=== PATIENT | male | born 1995 | race Caucasian/White ===

== ENCOUNTER 2016-10-26 09:41 | Emergency (ER) | payer OTHER ==
[2016-10-26 09:45] VITALS: BP 141/80; PULSE 60; TEMP 97.7; BMI 26.1
--- NOTE | 2016-10-26 10:18 | PDOC ---
History of Present Illness - General Chief Complaint: Injury Stated Complaint: LT WRIST PAIN Time Seen by Provider: 10/26/16 10:10 History Source: Patient Exam Limitations: No Limitations - History of Present Illness Initial Comments: 10/26/16 10:15 While playing basketball last night, fell onto outstretched left hand and buttock. Patient complaints of pain and immobility to left lateral hand, and reproduce pain to coccyx. States has had a coccyx fracture in the past and feels may every exacerbated that injury. Denies any problems with bowel or bladder and no distal extremity problem Occurred: reports: yesterday Severity: reports: mild, moderate Pain Location: reports: upper extremity Method of Injury: Yes: fall Modifying Factors: improves with: cold therapy (left hand) Loss of Consciousness: no loss of consciousness Past History - Travel Traveled outside of the country in the last 30 days: No Close contact w/someone who was outside of country & ill: No - Past Medical History Allergies/Adverse Reactions: Allergies Allergy/AdvReac Type Severity Reaction Status Date / Time No Known Allergies Allergy Verified 10/26/16 09:45 Home Medications: Ambulatory Orders Naproxen [Naprosyn -] 500 mg PO BID #20 tablet 10/26/16 Other medical history: NONE - Psycho/Social/Smoking Cessation Hx Suicidal Ideation: No Smoking History: Never smoked Hx Alcohol Use: No Drug/Substance Use Hx: No Substance Use Type: Marijuana Review of Systems - Review of Systems Able to Perform ROS?: Yes Is the patient limited Mohawk proficient: Yes Constitutional: Yes: Symptoms Reported, See HPI. No: Malaise HEENTM: No: Symptoms Reported Respiratory: No: Symptoms reported ABD/GI: No: Symptoms Reported : No: Symptoms Reported Musculoskeletal: Yes: Symptoms Reported, See HPI, Joint Pain, Joint Swelling ( left hand ,4,5th metacarpals), Other Integumentary: Yes: Symptoms Reported, See HPI, Bruising All Other Systems: Reviewed and Negative *Physical Exam - Vital Signs Last Vital Signs Temp Pulse Resp BP Pulse Ox 97.7 F 60 18 141/80 100 10/26/16 09:42 10/26/16 09:42 10/26/16 09:42 10/26/16 09:42 10/26/16 09:42 - Physical Exam General Appearance: Yes: Appropriately Dressed, Apparent Distress HEENT: positive: [place], Normal ENT Inspection, Normal Voice, Symmetrical, TMs Normal, Pharynx Normal Musculoskeletal: positive: Decreased Range of Motion, Other (tenderness to midline Sacrum/ upper coccyx. No bruisiing or swelling ). negative: Normal Inspection Extremity: positive: Tender (tenderness and deformity noted to the lateral aspect of left hand along the fifth and fourth metacarpals. Unable to make fist and painful flexion and extension to left fifth and fourth digits. Neurovascular intact to fingertips), Swelling. negative: Normal Inspection, Normal Range of Motion Integumentary: positive: Ecchymosis, Bruising (left palm) Neurologic: positive: leaf blender II-XII NML intact, Fully Oriented, Alert, Normal Mood/ Affect, Normal Response, Motor Strength 5/5 *DC/Admit/Observation/Transfer Diagnosis at time of Disposition: Pain, coccyx Sprain of hand, left Qualifiers: Encounter type: initial encounter Qualified Code(s): S63.92XA - Sprain of unspecified part of left wrist and hand, initial encounter - Discharge Dispostion Disposition: HOME Condition at time of disposition: Stable Admit: No - Referrals Referrals: Tanya Louie MD [Primary Care Provider] - Alberto Perera MD [Staff Physician] - - Patient Instructions Printed Discharge Instructions: DI for Contusion Additional Instructions: Rest, ice to area on and off for 15 minutes 4-6 times a day Avoid heavy lifting or exercise until pain and swelling is resolved or until further directed Keep area highly elevated to reduce swelling Use splints/Maxwell wrap as directed Followup with orthopedist in one to 2 days if not improving, if significantly improved may wait one week for followup with orthopedist May use ibuprofen 2-200 mg tablets every 6 hours as needed for pain
== END 2016-10-26 11:07 | disposition home or self-care (01) ==
LOC: JERFT 09:41
DX: M53.3 Sacrococcygeal disorders, not elsewhere classified (principal); S63.92XA Sprain of unspecified part of left wrist and hand, initial encounter; W18.39XA Other fall on same level, initial encounter; Y93.67 Activity, basketball; Y92.310 Basketball court as the place of occurrence of the external cause
CPT/HCPCS: 73130-TC-LT; 99281-25

== ENCOUNTER 2019-02-27 01:07 | Emergency (ER) | payer OTHER ==
[2019-02-27] MEDS ORDERED: TETRACAINE 0.5% HCL 0.6ML DROPPER.BOTTLE OU ONE (01:37)
[2019-02-27] MEDS ORDERED: FLUORESCEIN NA 1 EA STRIP OU ONE (01:37)
[2019-02-27] MEDS ORDERED: ERYTHROMYCIN 0.5% OPHTHALMIC OINTMENT 3.5 GM TUBE OU ONE (01:37)
--- NOTE | 2019-02-27 01:38 | PDOC ---
Medical Decision Making - Medical Decision Making 02/27/19 01:38 Patient seen by the advanced practice provider under my direct supervision. Ancillary testing reviewed as necessary. I agree with plan as outlined by the advanced practice provider. Discharge - Discharge Information Problems reviewed: Yes Clinical Impression/Diagnosis: Corneal abrasion, left Qualifiers: Encounter type: initial encounter Qualified Code(s): S05.02XA - Injury of conjunctiva and corneal abrasion without foreign body, left eye, initial encounter Condition: Good Disposition: HOME - Additional Discharge Information Prescriptions: Erythromycin 0.5% Eye Ointment [Erythromycin 0.5% Eye Ointment -] 1 applic OD TID #1 tube - Follow up/Referral Referrals: Alberto Morgan MD [Staff Physician] - Call tomorrow - Patient Discharge Instructions Patient Printed Discharge Instructions: Corneal Abrasion Additional Instructions: use erythromycin as prescribed follow up with an eye doctor tomorrow. return to the ER for any worsening symptoms - Post Discharge Activity Work/Back to School Note: Back to Work
[2019-02-27] MEDS ORDERED: ERYTHROMYCIN 0.5% OPHTHALMIC OINTMENT 3.5 GM TUBE ONE (01:43)
[2019-02-27] MEDS ORDERED: TETRACAINE 0.5% OPHTH SOLN 2 ML BOTTLE ONE (01:43)
[2019-02-27] MEDS ORDERED: FLUORESCEIN NA 1 EA STRIP ONE (01:44)
[2019-02-27 01:48] VITALS: BP 130/84; PULSE 64; TEMP 97.9; BMI 28.2
--- NOTE | 2019-02-27 02:00 | PDOC ---
History of Present Illness - General Chief Complaint: Eye Problem Stated Complaint: EYE PROBLEM Time Seen by Provider: 02/27/19 01:36 - History of Present Illness Initial Comments: 02/27/19 02:00 23 year old male c/o left eye redness irritation and pain since waking up tonight. denies trauma/ injury. unsure of scratching eye. denies vision loss, floaters or double vision. patient reports slight photosensitivity no pmhx 02/27/19 02:08 Past History - Past Medical History Allergies/Adverse Reactions: Allergies Allergy/AdvReac Type Severity Reaction Status Date / Time No Known Allergies Allergy Verified 02/27/19 01:50 Home Medications: Ambulatory Orders Erythromycin 0.5% Eye Ointment [Erythromycin 0.5% Eye Ointment -] 1 applic OD TID #1 tube 02/27/19 - Psycho Social/Smoking Cessation Hx Smoking History: Never smoked Hx Alcohol Use: No Drug/Substance Use Hx: No Substance Use Type: Marijuana *Physical Exam - Physical Exam General Appearance: Yes: Appropriately Dressed HEENT: positive: Other (+ corneal abrasion vision 20/30 PERRLA, + fluroscein uptake to left corner of cornea) Medical Decision Making - Medical Decision Making A: corneal abrasion P:+ fluroscein uptake snellen 20/30 erythropmycin optho follow up tomorrow Discharge - Discharge Information Problems reviewed: Yes Clinical Impression/Diagnosis: Corneal abrasion, left Qualifiers: Encounter type: initial encounter Qualified Code(s): S05.02XA - Injury of conjunctiva and corneal abrasion without foreign body, left eye, initial encounter Condition: Good Disposition: HOME - Additional Discharge Information Prescriptions: Erythromycin 0.5% Eye Ointment [Erythromycin 0.5% Eye Ointment -] 1 applic OD TID #1 tube - Follow up/Referral Referrals: Alberto Morgan MD [Staff Physician] - Call tomorrow - Patient Discharge Instructions Patient Printed Discharge Instructions: Corneal Abrasion Additional Instructions: use erythromycin as prescribed follow up with an eye doctor tomorrow. return to the ER for any worsening symptoms - Post Discharge Activity Work/Back to School Note: Back to Work
== END 2019-02-27 02:11 | disposition home or self-care (01) ==
LOC: JER 01:07
DX: S05.02XA Injury of conjunctiva and corneal abrasion without foreign body, left eye, initial encounter (principal); X58.XXXA Exposure to other specified factors, initial encounter; Y93.89 Activity, other specified; Y92.89 Other specified places as the place of occurrence of the external cause; Y99.8 Other external cause status
CPT/HCPCS: 99281-25